=== PATIENT | female | born 1965 | race Caucasian/White ===

== ENCOUNTER 2017-02-06 03:00 | Inpatient (IN) | payer OTHER ==
[~2017-02-06] VITALS: Ht 152.4 cm; Wt 65.6 kg
[2017-02-06] MEDS ORDERED: ASPIRIN 81 MG TAB PO STA (03:24)
--- NOTE | 2017-02-06 04:04 | RADRPT ---
PROCEDURE: XR Chest. CLINICAL INDICATION: Chest pain TECHNIQUE: AP Portable chest. COMPARISON: No pertinent prior examinations were submitted for comparison. FINDINGS: The cardiomediastinal silhouette is normal. The lungs are clear. The osseous structures are unrema rkable. IMPRESSION: No acute findings. RPTAT: HIKT .Chance Guevara MD, MD Date Time Electronically viewed and signed by .Chance Guevara MD, MD on 02/06/2017 04:04 .T/
[2017-02-06 04:10] LABS: ADD SCAN DIFF NO
[2017-02-06 04:13] LABS: BASOPHILS % 0.3 % (0.0-2.0); EOSINOPHILS # 0.1 10^3/ul (0.0-0.5); EOSINOPHILS % 0.9 % (0.0-7.0); HEMATOCRIT 41.6 % (37.0-47.0); HEMOGLOBIN 14.8 g/dl (12.0-16.0); LYMPHOCYTES # 1.2 10^3/ul (0.8-2.9); LYMPHOCYTES % 14.4 % (15.0-51.0); MEAN CORPUSCULAR HEMOGLOBIN 30.3 pg (29.0-33.0); MEAN CORPUSCULAR HGB CONC 35.6 g/dl (32.0-37.0); MEAN CORPUSCULAR VOLUME 85.1 fl (82.0-101.0); MONOCYTE # 0.4 10^3/ul (0.3-0.9); MONOCYTES % 4.8 % (0.0-11.0); NEUTROPHIL # 6.4 10^3/ul (1.6-7.5); NEUTROPHILS % 79.2 % (39.0-77.0); PLATELET COUNT 280 10^3/UL (140-415); RED BLOOD COUNT 4.89 10^6/ul (4.20-5.40); RED CELL DISTRIBUTION WIDTH 12.2 % (11.5-14.5)
[2017-02-06 04:23] LABS: CHLORIDE 100 mmol/L (97-110); INR 0.91; POTASSIUM 3.8 mmol/L (3.5-5.1); PROTIME 12.3 Sec (12.2-14.2); SODIUM 140 mmol/L (135-144)
[2017-02-06 04:25] LABS: CREATININE 0.47 mg/dl (0.44-1.00); PARTIAL THROMBOPLASTIN TIME 27.5 Sec (25.0-35.0)
[2017-02-06 04:26] LABS: ANION GAP 18 (8-16); BLOOD UREA NITROGEN 14 mg/dl (7-20); CARBON DIOXIDE 26 mmol/L (21-31); GLUCOSE 398 mg/dl (70-220)
[2017-02-06 04:27] LABS: CALCIUM 9.4 mg/dl (8.4-10.2)
[2017-02-06 04:38] LABS: TROPONIN-I < 0.012 ng/ml (0.00-0.12)
--- NOTE | 2017-02-06 05:47 | ERA ---
ER Documentation Chief Complaint Date/Time DATE: 02/06/17 TIME: 05:41 Chief Complaint Chest pain since 12 noon yesterday HPI 52-year-old female with a history of diabetes that is diet-controlled presenting with right-sided chest pain with pain radiating down her left arm. She states the symptoms started yesterday around 12 PM and have been intermittent since. She has had associated shortness of breath and mild dizziness with nausea, no vomiting. No exacerbating or alleviating factors. She denies associated headache or diaphoresis. She denies fevers, chills, cough. No recent immobilization or surgeries. ROS All systems reviewed and are negative except as per history of present illness. Allergies Allergies: Coded Allergies: No Known Allergy (Unverified , 02/06/17) PMhx/Soc Hx Miscellaneous Medical Probl: Yes (diabetes- diet controlled) Hx Alcohol Use: No Hx Substance Use: No Hx Tobacco Use: No Smoking Status: Never smoker FmHx Family History: No diabetes Physical Exam Vitals Vital Signs Date Time Temp Pulse Resp B/P Pulse Ox O2 Delivery O2 Flow Rate FiO2 02/06/17 03:12 98.6 96 20 178/87 100 Physical Exam Const: Well-appearing, no distress, nontoxic, no diaphoresis Head: Atraumatic Eyes: Normal Conjunctiva ENT: Normal External Ears, Nose and Mouth. Neck: Full range of motion..~ No meningismus. Resp: Clear to auscultation bilaterally Cardio: Regular rate and rhythm, no murmurs. 2+ distal pulses Abd: Soft, non tender, non distended. Normal bowel sounds Skin: No petechiae or rashes Back: No midline or flank tenderness Ext: No cyanosis, or edema Neur: Awake and alert Psych: Normal Mood and Affect Result Diagram: 02/06/17 0359 02/06/17 0359 Results 24 hrs Laboratory Tests Test 02/06/17 03:59 White Blood Count 8.010^3/ul Red Blood Count 4.8910^6/ul Hemoglobin 14.8g/dl Hematocrit 41.6% Mean Corpuscular Volume 85.1fl Mean Corpuscular Hemoglobin 30.3pg Mean Corpuscular Hemoglobin Concent 35.6g/dl Red Cell Distribution Width 12.2% Platelet Count 65207^3/UL Mean Platelet Volume 10.0fl Neutrophils % 79.2% Lymphocytes % 14.4% Monocytes % 4.8% Eosinophils % 0.9% Basophils % 0.3% Nucleated Red Blood Cells % 0.0/100WBC Neutrophils # 6.410^3/ul Lymphocytes # 1.210^3/ul Monocytes # 0.410^3/ul Eosinophils # 0.110^3/ul Basophils # 0.010^3/ul Nucleated Red Blood Cells # 0.010^3/ul Prothrombin Time 12.3Sec Prothrombin Time Ratio 1.0 INR International Normalized Ratio 0.91 Activated Partial Thromboplast Time 27.5Sec Sodium Level 140mmol/L Potassium Level 3.8mmol/L Chloride Level 100mmol/L Carbon Dioxide Level 26mmol/L Anion Gap 18 Blood Urea Nitrogen 14mg/dl Creatinine 0.47mg/dl Glucose Level 398mg/dl Calcium Level 9.4mg/dl Troponin I < 0.012ng/ml Current Medications Medications (Trade) Dose Ordered Sig/Sherice Route PRN Reason Start Time Stop Time Status Last Admin Dose Admin Aspirin (Aspirin) 162 mg ONCE STAT PO 02/06/17 03:24 02/06/17 03:25 DC 02/06/17 03:50 Procedures/MDM EMERGENT LABS AND DIAGNOSTIC STUDIES: Lab Results above were reviewed and interpreted by me. Labs show hyperglycemia, no other acute abnormalities, troponin negative 12-lead EKG was interpreted by Martín Casey MD: EKG #1: Rate/Rhythm: Normal Sinus Rhythm QRS, ST, T-waves: Anterior T-wave inversions with minimal ST depressions Impression: Possible anterior ischemia, no STEMI EKG #2: Rate/Rhythm: Normal Sinus Rhythm QRS, ST, T-waves: No changes consistent w/ acute ischemia Impression: Possible anterior ischemia, no STEMI Radiology Results as interpreted by Radiology below were reviewed by Leland Casey MD: Chest x-ray shows no acute disease per radiology Initial Nursing notes reviewed. Previous Medical Records requested via the Electronic Health Record. EMERGENCY DEPARTMENT COURSE / MEDICAL DECISION MAKING: Patients symptoms are concerning for a cardiac etiology. Other etiologies considered were PE, aortic dissection, pneumonia, pneumothorax, esophageal rupture. EKG showed evidence of possible ischemic changes. Initial troponin negative. CXR grossly unremarkable. However patient has an intermediate risk of adverse events. Plan to admit for further evaluation. Patient is not safe for discharge and will need inpatient monitoring and further evaluation. Further workup will be deferred to the inpatient team. Accepting Care Team: Current data and ongoing care discussed. Time: Time of admission Primary Provider: Bradley Consulting: none Outstanding Data: none Departure Diagnosis: Primary Impression: Chest pain Qualified Code: R07.89 - Other chest pain Additional Impression: Uncontrolled diabetes mellitus Qualified Code: E11.65 - Uncontrolled type 2 diabetes mellitus without complication, without long-term current use of insulin Condition: GIANLUCA Adame MD Feb 06, 2017 05:47
[2017-02-06] MEDS ORDERED: ACETAMINOPHEN 325 MG TAB PO PRN ×2 (06:00→16:30)
[2017-02-06] MEDS ORDERED: ONDANSETRON 4 MG INJ IV PRN ×2 (06:00→16:30)
[2017-02-06] MEDS ORDERED: ACETAMINOPHEN 325 MG TAB PO ONE (11:00)
[2017-02-06 16:00] VITALS: TEMP 98.3
[2017-02-06] MEDS ORDERED: ASPIRIN 81 MG TAB PO ONE (16:30)
[2017-02-06] MEDS ORDERED: morphine 2 MG INJ IV PRN (16:30)
[2017-02-06] MEDS ORDERED: MAGNESIUM HYDROXIDE 30ML CUP PO PRN (16:30)
[2017-02-06] MEDS ORDERED: NACL 0.9% 3 ML SYG IV SCH (16:30)
[2017-02-06] MEDS ORDERED: DOCUSATE SODIUM 100 MG CAP PO PRN (16:30)
[2017-02-06] MEDS ORDERED: NITROGLYCERIN (SL) 0.4 MG TAB SL PRN (16:30)
[2017-02-06 17:14] LABS: CHOL/HDL RATIO 5.1 RATIO; CREATINE KINASE 25 IU/L (23-200)
[2017-02-06 17:15] VITALS: BP 141/77; PULSE 89; RESP 20; Ht 152.4 cm; Wt 65.6 kg
[2017-02-06 17:34] LABS: CK-MB < 0.22 ng/ml (0.0-2.4); TROPONIN-I < 0.012 ng/ml (0.00-0.12)
--- NOTE | 2017-02-06 19:10 | CONS ---
DATE OF ADMISSION: 02/06/2017 DATE OF CONSULTATION: 02/06/2017 REASON FOR CONSULTATION: Chest pain, assess for acute coronary syndrome. Shortness of breath, asse ss for congestive heart failure. REQUESTING PHYSICIAN: Jake Pedro MD HISTORY OF PRESENT ILLNESS: Ms. Vanegas is a 52-year-old female with history of diet-controlled kim betes mellitus, who initially presented with complaints of right-sided substernal chest pain radiati ng to her left arm with associated shortness of breath, mild dizziness. The patient's chest pain de scribed as a pressure-like sensation. The patient's pain is not necessarily related to exertional a ctivities. Upon arrival, temperature 98.6, blood pressure 178/87, pulse 96, respiratory rate 20, sa turating 100%. The patient's labs showed white count 8, hemoglobin 14.8, platelet count of 280. So dium 140, potassium 3.8, creatinine 0.47, BUN 14. Troponin negative. LDL 160, HDL 48. INR 0.91. The patient underwent a chest x-ray revealing no acute findings. The patient's electrocardiogram re vealed normal sinus rhythm, rate of 89, normal axis, normal intervals, anterior T-wave inversion, an d lateral biphasic T-wave abnormalities. The patient subsequently treated with aspirin and now has been admitted to the floor. Since admit to floor, the patient has had recurrent chest pain. The pa tient has had no improvement in systolic blood pressures. PAST MEDICAL HISTORY: As above in HPI. MEDICATIONS CURRENTLY IN HOSPITAL: 1. Lovenox 40 mg SubQ daily. 2. Protonix 40 mg daily. 3. Sublingual nitroglycerin p.r.n. 4. Zofran p.r.n. 5. Tylenol p.r.n. 7. p.r.n. 8. Milk of magnesia p.r.n. 9. Zofran p.r.n. ALLERGIES: NO KNOWN DRUG ALLERGIES. SOCIAL HISTORY: No current tobacco, ETOH, or illicit drug use. FAMILY HISTORY: No history of sudden cardiac or early CAD. REVIEW OF SYSTEMS: As above in HPI. CONSTITUTIONAL: No fevers, chills. PULMONARY: Shortness of breath. CARDIOVASCULAR: Chest pain. GASTROINTESTINAL: No vomiting. GENITOURINARY: No hematuria. MUSCULOSKELETAL: Degenerative joint disease. PSYCHIATRIC: The patient denies depression. NEUROLOGIC: No documented history of CVA. PHYSICAL EXAMINATION VITAL SIGNS: Temperature 98.3, blood pressure most recently 140/77, pulse 89, respiratory rate 20, saturating 98%. GENERAL: The patient is alert, awake, in no acute distress. NECK: JVP approximately 8 cm of water. CHEST: Fair air movement throughout. HEART: Regular rate and rhythm. Normal S1, S2. A I/ systolic murmur, nondisplaced PMI. ABDOMEN: Positive bowel sounds, soft. EXTREMITIES: No edema, 1+ pulses bilaterally, posterior tibial. LABORATORIES: As above in HPI, with from today, the patient had a second troponin which returned ne gative (2 negative troponins). IMAGING STUDIES: As above in HPI. No further imaging studies for my review at this time. ECG: As above in HPI. No further electrocardiograms for my review at this time. IMPRESSION: 1. Chest pain, assess for acute coronary syndrome. 2. Shortness of breath, assess for congestive heart failure. 3. Abnormal electrocardiogram, assess for acute coronary syndrome. 4. Hypertension, labile. 5. Diabetes mellitus, diet controlled. 6. Dyslipidemia with significantly elevated LDL. RECOMMENDATIONS: 1. At this time, would maintain the patient on telemetry monitoring to follow rhythm and rate contr ol closely. 2. Start patient on aspirin 81 mg daily, and will give the patient a beta-jose at this time for improvement in heart rate and blood pressure control in the setting of chest pain, EKG abnormalities , and will give patient p.r.n. sublingual nitroglycerin. Then, if the patient continues to have david st pain, will start patient on oral nitrates. 3. A 2D echocardiogram to further assess the patient's ejection fraction, wall motion, and any ian r valvular abnormalities. 4. We will start patient on statin therapy for elevated LDL. 5. We will complete the patient's rule out for myocardial infarction, to ensure the patient's chest pain is not indicative of an acute coronary syndrome such as acute myocardial infarction, and if noemi centeno does rule out for myocardial infarction with total of 3 negative troponins, then at that time I believe the patient will benefit from further inpatient risk stratification with cardiac stress te st, which thus can be scheduled to take place in the morning. Thank you for allowing me to take part in the care of this patient. I will continue to follow very closely with you with further recommendations to be made as the patient progresses through her [facility] clinical course. Dictated By: MAGDI RIOS/EILEEN Conf#: [id number] DID#: [id number] CC: JAKE PEDRO MD;*EndCC*
[2017-02-06 20:29] VITALS: PULSE 72
[2017-02-06 20:35] VITALS: BP 153/72; RESP 18
[2017-02-06] MEDS: METOPROLOL 25 MG TAB PO SCH (20:59)
[2017-02-06 22:40] LABS: CREATINE KINASE 42 IU/L (23-200)
[2017-02-06 22:51] LABS: CK-MB < 0.22 ng/ml (0.0-2.4)
[2017-02-06 22:53] LABS: TROPONIN-I 0.012 ng/ml (0.00-0.12)
[2017-02-07] VITALS (11 sets, daily range): BP systolic 117–136; BP diastolic 62–72; PULSE 65–74; RESP 17–20
[2017-02-07] MEDS: PANTOPRAZOLE (EC) 40 MG TAB PO SCH (05:19)
[2017-02-07 07:49] LABS: CHOL/HDL RATIO 4.9 RATIO
[2017-02-07] MEDS: METOPROLOL 25 MG TAB PO SCH ×2 (09:16→20:00)
[2017-02-07] MEDS: ENOXAPARIN 40 MG/0.4 ML SYG SC SCH (09:17)
[2017-02-07] MEDS ORDERED: REGADENOSON 0.4 MG/5 ML SYG ONE (10:57)
--- NOTE | 2017-02-07 11:52 | CONS ---
Date/Time of Note Date/Time of Note DATE: 02/07/17 TIME: 11:48 Assessment/Plan Assessment/Plan Chief Complaint/Hosp Course IMPRESSION: 1. Chest pain, assess for acute coronary syndrome.-negative troponin x 3 2. Shortness of breath, assess for congestive heart failure. 3. Abnormal electrocardiogram, assess for acute coronary syndrome. 4. Hypertension, labile. 5. Diabetes mellitus, diet controlled. 6. Dyslipidemia with significantly elevated LDL.-168/HDL 51 Recc: -Tele -serial ecg's -Continue asa -Continue BB -Lexiscan stress test today -PRN SL NTG for recurrent chest pain Problems: Consultation Date/Type/Reason Admit Date/Time Feb 06, 2017 at 05:40 Initial Consult Date 02/06/2017 Type of Consultation: Cardiology Reason for Consultation Chest pain Referring Provider: NEL PEDRO Exam/Review of Systems Vital Signs Vitals Vital Signs Date Time Temp Pulse Resp B/P Pulse Ox O2 Delivery O2 Flow Rate FiO2 02/07/17 08:14 65 02/07/17 07:43 98.5 20 136/71 99 02/06/17 17:15 Room Air Intake and Output 02/06/17 02/06/17 02/07/17 15:00 23:00 07:00 Intake Total 360 ml Balance 360 ml Exam Review of Systems: CONSTITUTIONAL: No fevers, chills. PULMONARY: No sob CARDIOVASCULAR: No chest pain/palpitations GASTROINTESTINAL: No nausea/vomiting. GENITOURINARY: No hematuria/dysuria. MUSCULOSKELETAL: No myagias/arthalgias. PSYCHIATRIC: The patient denies depression. NEUROLOGIC: No weakness Constitutional: alert, oriented Psych: no complaints Head: normocephalic ENMT: mucosa pink and moist Neck: jvd (8 cm water), supple Respiratory: clear to auscultation Cardiovascular: regular rate and rhythm Gastrointestinal: non-tender, soft Musculoskeletal: muscle tone (normal) Extremities: edema (none) Neurological: other (No focal deficits) Results Result Diagram: 02/06/17 0359 02/06/17 0359 Results 24 hrs Laboratory Tests Test 02/06/17 16:30 02/06/17 19:07 02/06/17 22:05 02/07/17 05:55 Creatine Kinase 25 42 Creatine Kinase Index 0.9 0.5 Creatinine Kinase MB (Mass) < 0.22 < 0.22 Troponin I < 0.012 < 0.012 0.012 < 0.012 Triglycerides Level 154 H 164 H Cholesterol Level 247 H 252 H LDL Cholesterol, Calculated 168 168 HDL Cholesterol 48 51 Cholesterol/HDL Ratio 5.1 4.9 Medications Medications Current Medications Nitroglycerin (Nitroglycerin (Sl Tab) 0.4 Mg) 1 tab Q5M PRN SL CHEST PAIN; Start 02/06/17 at 16:30 Morphine Sulfate (morphine) 2 mg Q2H PRN IV PAIN LEVEL 4-6; Start 02/06/17 at 16:30 Ondansetron HCl (Zofran Inj) 4 mg Q6H PRN IV NAUSEA AND/OR VOMITING; Start at 16:30 Acetaminophen (Tylenol Tab) 650 mg Q6H PRN PO PAIN LEVEL 1-3 OR FEVER; Start at 16:30 Docusate Sodium (Colace) 100 mg Q12H PRN PO CONSTIPATION; Start 02/06/17 at 16: 30 Magnesium Hydroxide (Milk Of Mag) 30 ml DAILY PRN PO CONSTIPATION; Start at 16:30 Pantoprazole (Protonix Tab) 40 mg DAILY@06 PO Last administered on 02/07/17 05 :19; Admin Dose 40 MG; Start 02/07/17 at 06:00 Enoxaparin Sodium (Lovenox) 40 mg DAILY SC Last administered on 02/07/17 09:17 ; Admin Dose 40 MG; Start 02/07/17 at 09:00 Metoprolol Tartrate (Lopressor) 25 mg BID PO Last administered on 02/07/17 09: 16; Admin Dose 25 MG; Start 02/06/17 at 21:00 MAGDI THOMAS Feb 07, 2017 11:52
--- NOTE | 2017-02-07 12:33 | CARRPT ---
DATE OF PROCEDURE: 02/07/2017 PROCEDURE: Lexiscan Cardiolite stress test electrocardiogram portion. REASON FOR STRESS TESTING: Chest pain, assess for ischemia. BASELINE VITAL SIGNS AND ELECTROCARDIOGRAM: Pulse of 68, blood pressure 176/84. Electrocardiogram reveals normal sinus rhythm and rate of 68, normal axis, normal intervals with biphasic T-wave abnor malities in the anterior and lateral leads. PROCEDURE: The patient underwent standard Lexiscan infusion protocol over 10 seconds followed by ra diolabeled tracer. The patient's test was stopped due to completion of protocol. Maximal achieved blood pressure during the test of 158/77. Maximum heart rate during the test 100. ELECTROCARDIOGRAM FINDINGS: The patient developed exaggeration of previously noted biphasic T-wave abnormalities in the anterior and inferolateral leads, which returned to normal during recovery. SYMPTOMS: The patient had no complaints of chest pain or shortness of breath during stress testing. IMPRESSION: 1. Lexiscan-induced ST and T-wave changes from baseline abnormalities that are suggestive, but nond iagnostic for cardiac ischemia. 2. No complaints of chest pain or shortness of breath during stress testing. 3. No documented premature ventricular contractions during stress testing. 4. Report of nuclear images to follow in separate dictation. Dictated By: MAGDI RIOS/EILEEN Conf#: [id number] DID#: [id number] CC: NEL PEDRO MD;*End*
--- NOTE | 2017-02-07 14:07 | RADRPT ---
PROCEDURE: Nuclear medicine myocardial stress and rest scan. CLINICAL INDICATION: Chest pain. TECHNIQUE: The patient was stressed with 0.4 mg IV Lexiscan. 8.7 mCi technetium 99m Tetrofosmin ( Myoview) was administered rest. 27.7 mCi technetium 99m Tetrofosmin (Myoview) was administered dur ing stress. Images were obtained and reconstructed in the short axis, horizontal long axis, and janie tical long axis. Gated images were obtained and ejection fraction was calculated. COMPARISON: No prior study is available for comparison. FINDINGS: The stress and rest images demonstrate normal uptake throughout. There is no fixed abnormality or r eversible abnormality. There is no evidence of transient ischemic dilatation. Wall motion is normal. There is normal wall thickening during systole. Ejection fraction at stress is 67%. IMPRESSION: 1. No evidence of stress induced myocardial ischemia. 2. Ejection fraction at stress is 67%. RPTAT: QQ .Parth Calvin MD, MD Date Time Electronically viewed and signed by .Parth Calvin MD, on 02/07/2017 14:06 .R/
--- NOTE | 2017-02-07 14:32 | PN ---
Date/Time of Note Date/Time of Note DATE: 02/07/17 TIME: 14:28 Assessment/Plan VTE Prophylaxis VTE Prophylaxis Intervention: ambulation Lines/Catheters IV [facility]ine [facility] Urinary Cath still in place: No Assessment/Plan Chief Complaint/Hosp Course 1. Chest pain, assess for acute coronary syndrome.-negative troponin x 3 2. Shortness of breath, assess for congestive heart failure. 3. Abnormal electrocardiogram, assess for acute coronary syndrome. 4. Hypertension, labile. 5. Diabetes mellitus, diet controlled. 6. Dyslipidemia with significantly elevated Problems: Assessment/Plan 1. Stress test done 2.discharge tomorrow after clearance of dr Beckford Subjective 24 Hr Interval Summary Constitutional: improved, no complaints Eyes: no complaints ENT: no complaints Respiratory: no complaints Cardiovascular: no complaints Gastrointestinal: no complaints Musculoskeletal: no complaints Exam/Review of Systems Vital Signs Vitals Vital Signs Date Time Temp Pulse Resp B/P Pulse Ox O2 Delivery O2 Flow Rate FiO2 02/07/17 08:14 65 02/07/17 07:43 98.5 20 136/71 99 02/06/17 17:15 Room Air Intake and Output 02/06/17 02/06/17 02/07/17 15:00 23:00 07:00 Intake Total 360 ml Balance 360 ml Exam Constitutional: alert, oriented Psych: nl mood/affect, no complaints Head: normocephalic Eyes: nl conjunctiva Neck: supple Respiratory: clear to auscultation Cardiovascular: regular rate and rhythm Gastrointestinal: soft Genitourinary - Female: nl adnexae Musculoskeletal: nl extremities to inspection Extremities: normal pulses Results Result Diagram: 02/06/17 0359 02/06/17 0359 Results 24 hrs Laboratory Tests Test 02/06/17 16:30 02/06/17 19:07 02/06/17 22:05 02/07/17 05:55 Creatine Kinase 25 42 Creatine Kinase Index 0.9 0.5 Creatinine Kinase MB (Mass) < 0.22 < 0.22 Troponin I < 0.012 < 0.012 0.012 < 0.012 Triglycerides Level 154 H 164 H Cholesterol Level 247 H 252 H LDL Cholesterol, Calculated 168 168 HDL Cholesterol 48 51 Cholesterol/HDL Ratio 5.1 4.9 Medications Medications Current Medications Nitroglycerin (Nitroglycerin (Sl Tab) 0.4 Mg) 1 tab Q5M PRN SL CHEST PAIN; Start 02/06/17 at 16:30 Morphine Sulfate (morphine) 2 mg Q2H PRN IV PAIN LEVEL 4-6; Start 02/06/17 at 16:30 Ondansetron HCl (Zofran Inj) 4 mg Q6H PRN IV NAUSEA AND/OR VOMITING; Start at 16:30 Acetaminophen (Tylenol Tab) 650 mg Q6H PRN PO PAIN LEVEL 1-3 OR FEVER; Start at 16:30 Docusate Sodium (Colace) 100 mg Q12H PRN PO CONSTIPATION; Start 02/06/17 at 16: 30 Magnesium Hydroxide (Milk Of Mag) 30 ml DAILY PRN PO CONSTIPATION; Start at 16:30 Pantoprazole (Protonix Tab) 40 mg DAILY@06 PO Last administered on 02/07/17 05 :19; Admin Dose 40 MG; Start 02/07/17 at 06:00 Enoxaparin Sodium (Lovenox) 40 mg DAILY SC Last administered on 02/07/17 09:17 ; Admin Dose 40 MG; Start 02/07/17 at 09:00 Metoprolol Tartrate (Lopressor) 25 mg BID PO Last administered on 02/07/17 09: 16; Admin Dose 25 MG; Start 02/06/17 at 21:00 DONNIE MCKEON 24, 2017 14:32
--- NOTE | 2017-02-07 16:18 | RADRPT ---
Echocardiogram Report Patient Name: LYNETTE ELLIS Gender: Female Date: 1965 Study Date: 07-Feb-2017 Plate Take Out Worker: Tulio Hughes [facility] Location: 5539 Ref. Physician: NEL PEDRO Quality: Good Procedures: Transthoracic echocardiogram with complete 2D, M-Mode, and doppler examination. Indications: Coronary Artery Disease. 2D/M Mode Doppler Measurement Value Normal Ranges Measurement Value Normal Ranges LVIDd 2D 4.4 3.5 - 5.6 cm AV Peak Sampson 1.2 m/sec LVIDs 2D 2.7 2.1 - 4.1 cm AV Peak PG 6.1 mmHg LVPWd 2D 1.0 0.6 - 1.1 cm LVOT Peak Sampson 1.0 m/sec IVSd 2D 1.1 0.6 - 1.1 cm LVOT Peak PG 4.4 mmHg AoR Diam 2D 2.8 2.0 - 3.7 cm MV E Peak Sampson 0.5 m/sec EDV 2D 85.9 cm3 MV A Peak Sampson 0.5 m/sec ESV 2D 18.7 cm3 MV E/A 1.1 LA Dimen 2D 3.8 2.3 - 4.0 cm MV Decel Time 252 msec MV Decel Russell 2 MV E/A 1.1 Findings Left Ventricle: Normal left ventricular systolic function. Normal left ventricular cavity size. Mild concentric left ventricular hypertrophy. Ejection fraction is visually estimated at 6065 %. Tissue Doppler/Mitral Doppler indices are within normal limits. Right Ventricle: Normal right ventricular size. Normal right ventricular systolic function. Left Atrium: The left atrium is normal in size. Right Atrium: The right atrium is normal in size. Mitral Valve: Normal appearance and function of the mitral valve with trace physiologic regurgitation. Aortic Valve: Normal appearance of the aortic valve. No significant aortic stenosis or insufficiency. Tricuspid Valve: Normal appearance of the tricuspid valve. Unable to obtain RVSP due to minimal presence of tricuspid regurgitation. Pulmonic Valve: Normal pulmonic valve appearance. Pericardium: Normal pericardium with no significant pericardial effusion. Aorta: Normal aortic root. IVC: Normal size and normal respiratory collapse consistent with normal right atrial pressure. Conclusions Normal left ventricular systolic function. Normal left ventricular cavity size. Mild concentric left ventricular hypertrophy. Ejection fraction is visually estimated at 60-65 %. Tissue Doppler/Mitral Doppler indices are within normal limits. Normal appearance and function of the mitral valve with trace physiologic regurgitation. Normal appearance of the tricuspid valve. Unable to obtain RVSP due to minimal presence of tricuspid regurgitation. Electronically Signed By: Bi Beckford 07-Feb-2017 16:16:51 -0700 Patient Name: LYNETTE ELLIS Study Date: 07-Feb-2017 [id number]
[2017-02-07] MEDS ORDERED: GLUCOSE GEL 15 GRAM TUBE BUCCAL PRN (18:30)
[2017-02-07] MEDS ORDERED: GLUCOSE GEL 15 GRAM TUBE PO PRN ×2 (18:30)
[2017-02-07] MEDS ORDERED: DEXTROSE 50% 50 ML SYRINGE IV PRN ×2 (18:30)
[2017-02-07] MEDS ORDERED: GLUCAGON 1 MG INJ IM PRN (18:30)
[2017-02-07] MEDS ORDERED: INSULIN ASPART [NOVOLOG] 3 ML PEN SC ONE (20:30)
[2017-02-07] MEDS: INSULIN ASPART [NOVOLOG] 3 ML PEN SC SCH ×2 (20:30→23:43)
[2017-02-07] MEDS ORDERED: ATORVASTATIN 20 MG TAB PO SCH (21:00)
[2017-02-07] MEDS ORDERED: INSULIN ASPART [NOVOLOG] 3 ML PEN SC SCH (21:00)
[2017-02-07] MEDS ORDERED: INSULIN GLARGINE [LANtus] 3 ML PEN SC SCH (21:00)
[2017-02-08] VITALS (9 sets, daily range): BP systolic 118–163; BP diastolic 65–102; PULSE 57–80; RESP 18–20
[2017-02-08] MEDS ORDERED: ACCU-CHEK XX SCH ×3 (02:00)
[2017-02-08] MEDS: ACCU-CHEK XX SCH ×2 (02:00→03:00)
[2017-02-08] MEDS: PANTOPRAZOLE (EC) 40 MG TAB PO SCH (05:12)
[2017-02-08] MEDS: METOPROLOL 25 MG TAB PO SCH (08:40)
[2017-02-08] MEDS: ENOXAPARIN 40 MG/0.4 ML SYG SC SCH (08:42)
[2017-02-08] MEDS: INSULIN ASPART [NOVOLOG] 3 ML PEN SC SCH ×3 (08:44→17:54)
--- NOTE | 2017-02-08 12:17 | PN ---
DATE: 02/08/2017 FOLLOWUP NOTE The patient has no complaints of chest, no shortness of breath. Her vital signs are stable. Blood pressure 118/67. REVIEW OF SYSTEMS: Essential unchanged. PHYSICAL EXAMINATION: relatively symmetrical noted on the chest. HEART: Rhythm is regular, sinus rhythm. No extrasystoles. LUNGS: Clear to percussion and auscultation. ABDOMEN: Soft, nontender and benign. EXTREMITIES: Reveal no edema. NEUROLOGIC: The patient is alert and oriented. LABORATORY: Reveals that the sugar is elevated to 309, which I will leave the management to [facility]. There is no CBC. The nuclear stress test results from yesterday reveals no ev idence of ischemia. IMPRESSION: The patient is stable cardiologically. For discharge, as the patient is having no sympto ms and the nuclear stress test is negative for ischemia. I would leave the rest of her admit to her primary physician. Dictated By: JORGE BENITEZ MD, RA/EILEEN Conf#: [id number] DID#: [id number]
--- NOTE | 2017-02-08 13:38 | RADRPT ---
Vent Rate: 61 bpm RR Interval: 0 msec IN Interval: 142 msec QRS Duration: 90 msec QT Interval: 440 msec QTC Interval: 442 msec P-R-T [place]: 39 - 21 - 28 degrees Normal sinus rhythm Nonspecific T wave abnormality Abnormal ECG No previous tracing available for comparison Electronically Signed By: Franck Hicks [id number]
--- NOTE | 2017-02-08 17:40 | PN ---
Date/Time of Note Date/Time of Note DATE: 02/08/17 TIME: 17:37 Assessment/Plan VTE Prophylaxis VTE Prophylaxis Intervention: ambulation Lines/Catheters IV Catheter Type (from [facility]): [facility] Urinary Cath still in place: No Assessment/Plan Chief Complaint/Hosp Course 1. Chest pain, assess for acute coronary syndrome.-negative troponin x 3 2. Shortness of breath, assess for congestive heart failure. 3. Abnormal electrocardiogram, assess for acute coronary syndrome. 4. Hypertension, labile. 5. Diabetes mellitus, diet controlled. 6. Dyslipidemia with significantly elevated Problems: Assessment/Plan 1. Diabetic teaching 2. family and pt education to control BS 3. Possible discharge Subjective 24 Hr Interval Summary Constitutional: improved, no complaints Exam/Review of Systems Vital Signs Vitals Vital Signs Date Time Temp Pulse Resp B/P Pulse Ox O2 Delivery O2 Flow Rate FiO2 02/08/17 16:34 98.0 76 18 145/69 98 02/08/17 03:30 Room Air Intake and Output 02/07/17 02/07/17 02/08/17 15:00 23:00 07:00 Intake Total 960 ml Output Total 1500 ml Balance -540 ml Exam Constitutional: alert, oriented, well developed Psych: nl mood/affect, no complaints Head: normocephalic Eyes: nl conjunctiva Results Result Diagram: 02/06/17 0359 02/06/17 0359 Results 24 hrs Laboratory Tests Test 02/07/17 20:05 02/07/17 23:34 02/08/17 03:14 02/08/17 08:10 Bedside Glucose 363 H 298 H 311 H 309 H Test 02/08/17 12:13 02/08/17 17:09 Bedside Glucose 304 H 266 H Medications Medications Current Medications Nitroglycerin (Nitroglycerin (Sl Tab) 0.4 Mg) 1 tab Q5M PRN SL CHEST PAIN; Start 02/06/17 at 16:30 Morphine Sulfate (morphine) 2 mg Q2H PRN IV PAIN LEVEL 4-6; Start 02/06/17 at 16:30 Ondansetron HCl (Zofran Inj) 4 mg Q6H PRN IV NAUSEA AND/OR VOMITING; Start at 16:30 Acetaminophen (Tylenol Tab) 650 mg Q6H PRN PO PAIN LEVEL 1-3 OR FEVER; Start at 16:30 Docusate Sodium (Colace) 100 mg Q12H PRN PO CONSTIPATION; Start 02/06/17 at 16: 30 Magnesium Hydroxide (Milk Of Mag) 30 ml DAILY PRN PO CONSTIPATION; Start at 16:30 Pantoprazole (Protonix Tab) 40 mg DAILY@06 PO Last administered on 02/08/17 05 :12; Admin Dose 40 MG; Start 02/07/17 at 06:00 Enoxaparin Sodium (Lovenox) 40 mg DAILY SC Last administered on 02/08/17 08:42 ; Admin Dose 40 MG; Start 02/07/17 at 09:00 Metoprolol Tartrate (Lopressor) 25 mg BID PO Last administered on 02/07/17 20: 00; Admin Dose 25 MG; Start 02/06/17 at 21:00 Miscellaneous Information 1 ea NOTE XX ; Start 02/07/17 at 18:30 Glucose (Glutose) 15 gm Q15M PRN PO DECREASED GLUCOSE; Start 02/07/17 at 18:30 Glucose (Glutose) 22.5 gm Q15M PRN PO DECREASED GLUCOSE; Start 02/07/17 at 18: 30 Dextrose (D50w Syringe) 25 ml Q15M PRN IV DECREASED GLUCOSE; Start 02/07/17 at 18:30 Dextrose (D50w Syringe) 50 ml Q15M PRN IV DECREASED GLUCOSE; Start 02/07/17 at 18:30 Glucagon (Glucagen) 1 mg Q15M PRN IM DECREASED GLUCOSE; Start 02/07/17 at 18:30 Glucose (Glutose) 15 gm Q15M PRN BUCCAL DECREASED GLUCOSE; Start 02/07/17 at 18 :30 Insulin Glargine (Lantus) 12 unit DAILY@20 SC Last administered on 02/07/17 23 :47; Admin Dose 12 UNIT; Start 02/07/17 at 21:00 Atorvastatin Calcium (Lipitor) 20 mg HS PO Last administered on 02/07/17 20:45 ; Admin Dose 20 MG; Start 02/07/17 at 21:00 Diagnostic Test (Pha) (Accu-Chek) 1 ea 02 XX Last administered on 02/08/17 03: 00; Admin Dose 1 EA; Start 02/08/17 at 02:00 DONNIE MCKEON Feb 08, 2017 17:40
--- NOTE | 2017-02-08 18:32 | PDOCDIS ---
Discharge Instructions CONDITION Patient Condition: Stable HOME CARE INSTRUCTIONS: Special Diet: 1800 susana 2 gm NA,low chol, low fat ACTIVITY: Activity Restrictions: Slowly Increase Activity FOLLOW UP/APPOINTMENTS Appointments f/u own pcp 1 wk NEL PEDRO MD Feb 08, 2017 18:32
[2017-02-08] MEDS ORDERED: LANT3I SC (18:34)
[2017-02-08] MEDS ORDERED: NOVO3I SC (18:34)
[2017-02-08] MEDS ORDERED: ATOR20TA65 PO (18:34)
== END 2017-02-08 19:15 | disposition home or self-care (01) | DRG 313 ==
LOC: E/R 03:00 → MS4 05:40 → OBSVTOIN 13:27
PROVIDERS: ADMIT Internal Medicine Nephrology; ATTEND Internal Medicine Nephrology
DX: R07.9 Chest pain, unspecified (principal); E11.65 Type 2 diabetes mellitus with hyperglycemia; E78.5 Hyperlipidemia, unspecified; R06.02 Shortness of breath
CPT/HCPCS: 36415; 71010; 78452; 80048; 80061; 82550; 82553; 82962; 83036; 84484; 85025; 85610; 85730; 93005; 93017; 93306; G0378; A9500; A9505; J1650; J1815; J2785